=== PATIENT | female | born 1975 | race Caucasian/White ===

== ENCOUNTER 2017-08-17 17:04 | Emergency (ER) | payer SELFPAY ==
[~2017-08-17] VITALS: Ht 172.7 cm; Wt 78.0 kg
[2017-08-17 17:28] VITALS: BP 143/60
== END 2017-08-17 19:57 | disposition left against medical advice (07) ==
LOC: ER 19:13
DX: R50.9 Fever, unspecified (principal); Z53.21 Procedure and treatment not carried out due to patient leaving prior to being seen by health care provider